=== PATIENT | female | born 1960 | race Caucasian/White ===

== ENCOUNTER 2016-04-30 11:19 | Emergency (ER) | payer BC ==
[2016-04-30 12:22] VITALS: BP 137/85
--- NOTE | 2016-04-30 13:50 | UC ---
Respiratory Complaint HPI - HPI Summary HPI Summary: 55 year old female presents with a nonproductive cough x 9 days. Reports SOB with exertion, nighttime cough, and wheezing. Denies fever like symptoms. - History of Current Complaint Chief Complaint: UCRespiratory Stated Complaint: COUGH Time Seen by Provider: 04/30/16 13:32 Hx Obtained From: Patient Hx Last Menstrual Period: 10 years ago. ?: No Onset/Duration: Gradual Onset Timing: Intermittent Episodes Character: Cough: Nonproductive Aggravating Factors: Exertion, Deep Breaths Associated Signs And Symptoms: Positive: Dyspnea, Pleuritic Chest Pain, Wheezing , Hoarseness. Negative: Fever, Chills, Hemoptysis, Nasal Congestion, Sinus Discomfort - Risk Factors Pulmonary Embolism Risk Factors: Negative Cardiac Risk Factors: Negative Pseudomonas Risk Factors: Negative Tuberculosis Risk Factors: Negative - Allergies/Home Medications Allergies/Adverse Reactions: Allergies Allergy/AdvReac Type Severity Reaction Status Date / Time No Known Allergies Allergy Verified 04/30/16 12:21 PMH/Surg Hx/FS Hx/Imm Hx Previously Healthy: Yes Endocrine History Of: Denies: Diabetes, Thyroid Disease Cardiovascular History Of: Reports: Hypertension Denies: Cardiac Disorders Respiratory History Of: Reports: Asthma - seasonal-winter Denies: COPD GI/ History Of: Denies: Gastroesophageal Reflux, Ulcer, Gastrointestinal Bleed, Gall Bladder Disease, Kidney Stones, Diverticulitis, Renal Disease, Urosepsis Neurological History Of: Denies: TIA, CVA, Dementia, Seizures, Migraine Psychological History Of: Denies: Anxiety, Depression, Bipolar Disorder, Schizophrenia, Post Traumatic Stress Disorder Cancer History Of: Denies: Lung Cancer, Colorectal Cancer, Breast Cancer, Prostate Cancer, Cervical Cancer - Surgical History Surgical History: Yes Surgery Procedure, Year, and Place: [facility] - Family History Known Family History: Positive: None, Respiratory Disease - Mother/brother - COPD Sister: Lung Polyps - Social History Occupation: Employed Full-time - [employer] Lives: With Family Alcohol Use: Rare Substance Use Type: None Smoking Status (MU): Never Smoked Tobacco Have You Smoked in the Last Year: No - Immunization History Most Recent Influenza Vaccination: dec 2015 Review of Systems Constitutional: Negative Skin: Negative Eyes: Negative ENT: Negative Respiratory: Shortness Of Breath - With exertion Cardiovascular: Negative Gastrointestinal: Negative Genitourinary: Negative Motor: Negative Neurovascular: Negative Musculoskeletal: Negative Neurological: Negative Psychological: Negative All Other Systems Reviewed And Are Negative: Yes Physical Exam Triage Information Reviewed: Yes Appearance: Well-Appearing Vital Signs: Initial Vital Signs Temp 98 F 04/30/16 12:18 Pulse 90 04/30/16 12:18 Resp 20 04/30/16 12:18 BP 137/85 04/30/16 12:18 Pulse Ox 97 04/30/16 12:18 Vital Signs Reviewed: Yes Eye Exam: Normal ENT Exam: Normal ENT: Positive: Normal ENT inspection, Hearing grossly normal, Pharynx normal, TMs normal Dental Exam: Normal Neck exam: Normal Neck: Positive: Supple, Nontender, No Lymphadenopathy Respiratory: Positive: Chest non-tender, Lungs clear, No respiratory distress, Decreased breath sounds - Right posterior lobe, Wheezing - slight expiratory wheeze Cardiovascular: Positive: RRR, No Murmur, Pulses Normal Abdomen Description: Positive: Nontender, No Organomegaly, Soft Bowel Sounds: Positive: Present Musculoskeletal Exam: Normal Musculoskeletal: Positive: Strength Intact, ROM Intact Neurological: Positive: Alert Psychological Exam: Normal Skin Exam: Normal UC Diagnostic Evaluation - Laboratory O2 Sat by Pulse Oximetry: 97 Respiratory Course/Dx - Differential Dx/Diagnosis Provider Diagnoses: Acute bronchitis. bronchospasm Discharge - Discharge Plan Condition: Stable Disposition: HOME Prescriptions: Albuterol HFA INHALER* [Ventolin HFA Inhaler*] 1 - 2 puff INH Q6H PRN #1 mdi PRN Reason: wheeze guaiFENesin/CODIEN 100MG-10MG* [Robitussin AC 100Mg-10Mg*] 5 - 10 ml PO BEDTIME PRN #240 udc MDD 10 ml PRN Reason: Cough predniSONE TAB* [Deltasone TAB*] 50 mg PO DAILY #5 tab Patient Education Materials: Acute Bronchitis (ED) Referrals: Maryellen Quick MD [Primary Care Provider] - If Needed Additional Instructions: Call or return if you develop increasing fever, shortness of breath, chest pain , bloody sputum, or otherwise worsen. If you have not improved at all after several days, contact your primary care physician or return here.
== END 2016-04-30 14:04 | disposition home or self-care (01) ==
LOC: UCEAST 11:19
DX: J20.9 Acute bronchitis, unspecified (principal); Z90.49 Acquired absence of other specified parts of digestive tract
CPT/HCPCS: 99212; G0463

== ENCOUNTER 2016-05-08 08:46 | Emergency (ER) | payer BC ==
[2016-05-08 09:31] VITALS: BP 148/91
--- NOTE | 2016-05-08 09:41 | UC ---
Respiratory Complaint HPI - HPI Summary HPI Summary: TREATED FOR BRONCHITIS LAST WEEK WITH PREDNISONE, ALBUTEROL AND COUGH SYRUP. STATES SHE WAS FEELING BETTER BUT 2 DAYS AGO SX RETURNED. COUGH, HEAD CONGESTION AND FATIGUE. NO FEVER, N/V/D. - History of Current Complaint Chief Complaint: UCRespiratory Stated Complaint: CHEST CONGESTION Time Seen by Provider: 05/08/16 09:14 Hx Obtained From: Patient Hx Last Menstrual Period: 10 years ago. Onset/Duration: Gradual Onset, Lasting Days, Still Present Timing: Constant Severity Initially: Moderate Severity Currently: Moderate Pain Intensity: 0 Pain Scale Used: 0-10 Numeric Character: Cough: Nonproductive Aggravating Factors: Nothing Alleviating Factors: Nothing Associated Signs And Symptoms: Positive: URI, Nasal Congestion. Negative: Dyspnea, Fever, Chills, Pleuritic Chest Pain, Wheezing, Hemoptysis, Dizziness, Calf Pain, Calf Swelling, Hoarseness, Sinus Discomfort - Allergies/Home Medications Allergies/Adverse Reactions: Allergies Allergy/AdvReac Type Severity Reaction Status Date / Time No Known Allergies Allergy Verified 05/08/16 09:32 Home Medications: Home Medications Magnesium Oxide [Magnesium] 500 mg PO DAILY 05/08/16 [History Confirmed 05/08/16 ] Multiple Vitamin [Multi Vitamin] 1 tab PO DAILY 05/08/16 [History Confirmed 10/15] PMH/Surg Hx/FS Hx/Imm Hx Endocrine History Of: Denies: Diabetes, Thyroid Disease Cardiovascular History Of: Reports: Hypertension Denies: Cardiac Disorders Respiratory History Of: Reports: Asthma - seasonal-winter Denies: COPD GI/ History Of: Denies: Gastroesophageal Reflux, Ulcer, Gastrointestinal Bleed, Gall Bladder Disease, Kidney Stones, Diverticulitis, Renal Disease, Urosepsis Neurological History Of: Denies: TIA, CVA, Dementia, Seizures, Migraine Psychological History Of: Denies: Anxiety, Depression, Bipolar Disorder, Schizophrenia, Post Traumatic Stress Disorder Cancer History Of: Denies: Lung Cancer, Colorectal Cancer, Breast Cancer, Prostate Cancer, Cervical Cancer - Surgical History Surgical History: Yes Surgery Procedure, Year, and Place: 2010 - Family History Known Family History: Positive: Respiratory Disease - Mother/brother - COPD Sister: Lung Polyps - Social History Alcohol Use: Rare Substance Use Type: None Smoking Status (MU): Never Smoked Tobacco Have You Smoked in the Last Year: No Household Exposure Type: Cigarettes - Immunization History Most Recent Influenza Vaccination: dec 2015 Review of Systems Constitutional: Fatigue ENT: Sore Throat, Nasal Discharge Respiratory: Cough Cardiovascular: Negative Gastrointestinal: Negative All Other Systems Reviewed And Are Negative: Yes Physical Exam Triage Information Reviewed: Yes Appearance: Well-Appearing, No Pain Distress, Well-Nourished Vital Signs: Initial Vital Signs Temp 98.1 F 05/08/16 09:23 Pulse 96 05/08/16 09:23 Resp 16 05/08/16 09:23 BP 148/91 05/08/16 09:23 Pulse Ox 98 05/08/16 09:23 Vital Signs Reviewed: Yes Eyes: Positive: Conjunctiva Clear ENT: Positive: Hearing grossly normal, Pharynx normal, TMs normal Neck: Positive: Supple, Nontender, No Lymphadenopathy Respiratory Exam: Normal Cardiovascular Exam: Normal Abdomen Description: Positive: Soft Musculoskeletal: Positive: No Edema Neurological: Positive: Alert Psychological: Positive: Age Appropriate Behavior Skin: Negative: rashes UC Diagnostic Evaluation - Laboratory O2 Sat by Pulse Oximetry: 98 Respiratory Course/Dx - Differential Dx/Diagnosis Provider Diagnoses: ACUTE URI Discharge - Discharge Plan Condition: Stable Disposition: HOME Prescriptions: Azithromycin [Azithromycin 500 MG TAB] 500 mg PO DAILY #5 tab Benzonatate CAP* [Tessalon CAP*] 1 - 2 cap PO TID PRN #30 cap PRN Reason: Cough Patient Education Materials: Upper Respiratory Infection (ED) Referrals: Maryellen Quick MD [Primary Care Provider] - If Needed Additional Instructions: REST, HYDRATE, OTC MEDS NEEDED. YOU LIKELY HAVE A VIRAL RESPIRATORY INFECTION. ANTIBIOTICS ARE NOT INDICATED AT PRESENT. IF YOUR SYMPTOMS DO NOT IMPROVE EXPECTED OVER THE NEXT WEEK OR SO YOU MAY FILL RX FOR ABX.
== END 2016-05-08 10:09 | disposition home or self-care (01) ==
LOC: UCEAST 08:46
DX: J06.9 Acute upper respiratory infection, unspecified (principal); Z77.22 Contact with and (suspected) exposure to environmental tobacco smoke (acute) (chronic)
CPT/HCPCS: 99212; G0463

== ENCOUNTER 2017-11-12 12:45 | Inpatient (IN) | payer BC ==
[~2017-11-12 12:45] MED LIST: Buffered Lidocaine 0.9% SYRIN* 5 ML/SYR SYRINGE INTRADERM ONE; Dexamethasone TAB* 4 MG PO ONE; DiMENhydriNATE IV* 50 MG/ML VIAL IV PUSH PRN; Famotidine IV* 10 MG/ML 2 ML (20 mg) IV ONE; Morphine INJ* 2 MG/ML 1 ML SYRINGE (TWO MG - NEW SYRINGE VERSION) IV PRN; Naloxone* 0.4 MG/ML 1 ML VIAL IV PRN; Ondansetron TAB* 4 MG PO ONE; PROCHLORPERAZINE INJ 5 MG/ML 2 ML VIAL IV PRN; Scopolamine 1.5 mg* PATCH TRANSDERM ONE; fentaNYL* 50 MCG/ML 2 ML VIAL (100 MCG VIAL) IV PRN
--- OUTSIDE RECORDS SUMMARY | 2017-11-12 13:17 | XMS REPORT ---
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 Active Onset: 08/23/2011 Stress reaction causing mixed Maryellen Malin M.D. Active disturbance of emotion and conduct Onset: 11/04/2012 Overweight Maryellen Malin M.D. Active Onset: 11/04/2012 History of polyp of colon Maryellen Malin M.D. Active Onset: 11/04/2012 Family history of malignant neoplasm Maryellen Malin M.D. Active of breast Onset: 07/28/2015 Essential hypertension Maryellen Malin M.D. Active Family History Date Family Member(s) Problem(s) Comments General Breast CA - sister. no fam hx lung, colon CA. DM - mgm. Father father early 60's. medical history unknown. Adopted by step father father 74. stopped smoking. arrythmia. Mother 65 emphysema - smoker. First Son adopted from [facility]. well controlled seizures. College Freshman [employer] in [place]. Second Son adopted from [facility]. CP. High functioning. tendon lengthening surgery x 2. Plays all sports. some academic delay. First Brother 57 dt emphysema. long time smoker. on hospice. First Sister Breast CA - age 49. treated with surgery, radiation, tamoxifen. Second Sister healthy. [place]. Maternal Grandmother due to Natural Causes () - age 68. DM. Social History Type Date Description Comments Education Highest level of education completed is a master's degree [employer]. [employer], [employer] and [employer]. Honorable Discharge 1986. Living Situation Lives with spouse-female. 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 Cigarette Use Never Smoked Cigarettes grew up with second hand smoke. ETOH Use Rare no drinks in 2 years - too many calories. Smoking Patient has never smoked Daily Caffeine Daily Caffeine 4 cups coffee daily, creamer sweetner- switched to Stevia, now 2 cups daily. (2010) Exercise Type/Frequency Exercises rarely 2-3x /week. Current Goal is to run a 5K. Seat Belt/Car Seat Always uses a seat belt Allergies, Adverse Reactions, Alerts Date Description Reaction Status Severity Comments 11/10/2010 NKDA active Medications Medication Date Status Form Strength Qnty SIG Indications Ordering Provider Escitalopram 04/13/ Active Tablets 10mg 60tabs take 2 F34.1 Maryellen Stubbs Oxalate 2015 tablets Abdelrahman, by mouth M.DDeepali every day Epipen 2-Jorge 04/20/ Active Solution 0.3mg/0.3M 1units use as I10 Maryellen Stubbs 2015 Auto-Injec L directed denver Malin M.D. Benazepril 11/07/ Active Tablets 20-12.5mg 30tabs Take One I10 Maryellen Stubbs HCL/Hydrochloro 2009 Tablet By Abdelrahman thiazide Mouth M.DDeepali Every Morning Aleve / Active Tablets 220mg 30tabs 1 Tab qd Maryellen Stubbs 0000 prn Juma Malin Multivitamin & 00/00/ Active Unknown Mineral 0000 Cpap / Active as Unknown 0000 directed Metronidazole 07/27/ Hx Cream 0.75% 45gm apply L71.8 Maryellen Stubbs 2016 - daily Abdelrahman, M.D. 2017 Escitalopram 03/16/ Hx Tablets 5mg 30tabs take 1 F34.1 Dinaa Oxalate 2014 - tablet by Valarie, 04/13/ mouth at Afnp-C 2016 bedtime Vosol HC 08/28/ Hx Solution 2-1% 10ml 4 gtts in 380.22 Angeilca 2012 - AD tid x CM Molina 11/04/ 7days 2012 Omeprazole 07/01/ Hx Capsules 20mg 30caps 1 po qd 530.81 Maryellen Stubbs 2011 - DR Malin, M.D. 2012 Ranitidine HCL 06/21/ Hx Tablets 300mg 30tabs 1 po at hs 530.81 Maryellen Stubbs 2011 - Abdelrahman M.D. 2012 Terbinafine HCL 12/07/ Hx Tablets 250mg 56tabs 2 po daily 110.4 Maryellen Stubbs 2009 - first week Abdelrahman, M.D. 2010 month x 4 months. Advair Diskus 11/07/ Hx Aerosol 100-50mcg/ 1units 1 puff bid Maryellen Stubbs 2009 - Dose Abdelrahman, M.D. 2012 Fexofenadine 11/07/ Hx Tablets 60mg 90tabs 1 po qd Maryellen Stubbs HCL 2009 - Abdelrahman, .DDeepali 2012 Fish Oil / Hx Capsules 1 po qd Unknown 0000 - 2016 Immunizations CPT Code Status Date Vaccine Lot # [id number] Given 12/07/2009 Tetanus And Diptheria Adult Preservative Free [id number] >7Yrs Vital Signs Date Vital Result Comment 10/16/2017 BP Systolic 110 mmHg BP Diastolic 80 mmHg Heart Rate 66 /min Body Temperature 98.6 F Respiratory Rate 18 /min Height 64 inches 5'4" Weight 219.00 lb BMI (Body Mass Index) 37.6 kg/m2 07/02/2017 BP Systolic 110 mmHg BP Diastolic 72 mmHg Heart Rate 68 /min Body Temperature 97.1 F Height 64 inches 5'4" Weight 231.00 lb BMI (Body Mass Index) 39.6 kg/m2 03/13/2017 BP Systolic 116 mmHg BP Diastolic 76 mmHg Heart Rate 72 /min Body Temperature 97.5 F Respiratory Rate 16 /min Weight 244.50 lb 12/25/2016 BP Systolic 118 mmHg BP Diastolic 80 mmHg Heart Rate 68 /min Body Temperature 98.2 F Respiratory Rate 18 /min Weight 240.00 lb 11/15/2016 BP Systolic 120 mmHg BP Diastolic 80 mmHg Heart Rate 80 /min Body Temperature 98.2 F Respiratory Rate 18 /min Weight 237.00 lb 08/11/2015 BP Systolic 104 mmHg BP Diastolic 60 mmHg Heart Rate 78 /min Body Temperature 98.1 F Respiratory Rate 16 /min Height 63.5 inches 5'3.50" mesured 07/28/15 Weight 219.50 lb BMI (Body Mass Index) 38.3 kg/m2 07/28/2015 BP Systolic 116 mmHg BP Diastolic 78 mmHg Heart Rate 60 /min Body Temperature 98.4 F Respiratory Rate 16 /min Height 63.5 inches 5'3.50" mesured 07/28/15 Weight 219.50 lb BMI (Body Mass Index) 38.3 kg/m2 07/13/2015 BP Systolic 118 mmHg BP Diastolic 80 mmHg Heart Rate 74 /min Body Temperature 98.2 F Height 63 inches 5'3" Weight 220.00 lb BMI (Body Mass Index) 39.0 kg/m2 04/13/2015 BP Systolic 120 mmHg BP Diastolic 70 mmHg Heart Rate 73 /min Body Temperature 97.3 F Respiratory Rate 16 /min Height 63 inches 5'3" Weight 212.12 lb BMI (Body Mass Index) 37.6 kg/m2 03/16/2015 BP Systolic 122 mmHg BP Diastolic 70 mmHg Heart Rate 84 /min Body Temperature 97.5 F Respiratory Rate 18 /min Height 63 inches 5'3" Weight 211.12 lb BMI (Body Mass Index) 37.4 kg/m2 04/20/2014 BP Systolic 110 mmHg BP Diastolic 80 mmHg Heart Rate 80 /min Body Temperature 98.5 F Respiratory Rate 18 /min Height 63 inches 5'3" Weight 178.00 lb BMI (Body Mass Index) 31.5 kg/m2 04/16/2013 BP Systolic 118 mmHg BP Diastolic 74 mmHg Heart Rate 66 /min Body Temperature 97.9 F Respiratory Rate 18 /min Height 63 inches 5'3" Weight 189.00 lb BMI (Body Mass Index) 33.5 kg/m2 01/23/2013 BP Systolic 108 mmHg BP Diastolic 80 mmHg Heart Rate 80 /min Body Temperature 98.1 F Respiratory Rate 16 /min Height 63.25 inches 5'3.25" Weight 206.00 lb BMI (Body Mass Index) 36.2 kg/m2 11/04/2012 BP Systolic 110 mmHg BP Diastolic 70 mmHg Heart Rate 68 /min Body Temperature 98.3 F Respiratory Rate 16 /min Height 63.25 inches 5'3.25" Weight 234.00 lb BMI (Body Mass Index) 41.1 kg/m2 08/28/2012 BP Systolic 128 mmHg BP Diastolic 80 mmHg Heart Rate 72 /min Body Temperature 97.8 F Respiratory Rate 20 /min Height 63.25 inches 5'3.25" Weight 230.12 lb BMI (Body Mass Index) 40.4 kg/m2 08/23/2011 BP Systolic 120 mmHg BP Diastolic 80 mmHg Heart Rate 68 /min Body Temperature 98.2 F Height 63.25 inches 5'3.25" Weight 237.00 lb BMI (Body Mass Index) 41.6 kg/m2 07/02/2011 BP Systolic 120 mmHg BP Diastolic 70 mmHg Heart Rate 76 /min Body Temperature 98.5 F Height 63.25 inches 5'3.25" Weight 225.00 lb BMI (Body Mass Index) 39.5 kg/m2 06/22/2011 BP Systolic 122 mmHg BP Diastolic 76 mmHg Heart Rate 68 /min Body Temperature 97.7 F Respiratory Rate 20 /min Height 63.25 inches 5'3.25" Weight 221.00 lb BMI (Body Mass Index) 38.8 kg/m2 12/21/2010 BP Systolic 130 mmHg BP Diastolic 84 mmHg Heart Rate 64 /min Body Temperature 98.3 F Height 63.25 inches 5'3.25" Weight 213.00 lb BMI (Body Mass Index) 37.4 kg/m2 11/10/2010 BP Systolic 112 mmHg BP Diastolic 70 mmHg Heart Rate 72 /min Body Temperature 97.2 F Respiratory Rate 16 /min Height 63 inches 5'3" Weight 211.00 lb BMI (Body Mass Index) 37.4 kg/m2 12/07/2009 BP Systolic 122 mmHg BP Diastolic 84 mmHg Heart Rate 88 /min Body Temperature 98.0 F Respiratory Rate 16 /min Height 63 inches 5'3" Weight 241.00 lb BMI (Body Mass Index) 42.7 kg/m2 11/07/2009 BP Systolic 130 mmHg BP Diastolic 90 mmHg Heart Rate 88 /min Body Temperature 98.9 F Height 63 inches 5'3" Weight 244.00 lb BMI (Body Mass Index) 43.2 kg/m2 Results Test Date Test Result H/L Range Note Ua - Micro (Fma) 10/16/2017 Appearance clear Color yellow Glucose, Urine (Fma/CMC/CTX) negative Bilirubin negative Ketones negative SP Grav 1.010 Blood negative PH 5.5 Protein negative Urobil 0.2 Nitrite negative Leukocytes (Fma/CMC/Centrex) negative Hyaline - /Lpf Granular - /Lpf WBC (Fma,Centrex) - RBC - Mucus - /Lpf Epith - /Lpf Bacteria - /Hpf Amorphous - /Lpf Crystals, Fluid (Fma/CMC/CTX) - Z#Comments - Laboratory test finding 10/14/2017 Surgical Interface SEE RESULT BELOW 1 Order Laboratory test finding 10/14/2017 Clotest SEE RESULT BELOW 2 Comp Metabolic Panel 07/04/2017 Sodium 140 mmol/L 139-145 Potassium 4.5 mmol/L 3.5-5.0 Chloride 105 mmol/L 101-111 Co2 Carbon Dioxide 30 mmol/L 22-32 Anion Gap 5 mmol/L 2-11 Glucose 95 mg/dL 70-100 Blood Urea Nitrogen 19 mg/dL 6-24 Creatinine 0.90 mg/dL 0.51-0.95 BUN/Creatinine Ratio 21.1 High 8-20 Calcium 9.6 mg/dL 8.6-10.3 Total Protein 6.6 g/dL 6.4-8.9 Albumin 4.2 g/dL 3.2-5.2 Globulin 2.4 g/dL 2-4 Albumin/Globulin Ratio 1.8 1-3 Total Bilirubin 0.40 mg/dL 0.2-1.0 Alkaline Phosphatase 45 U/L 34-104 Alt 48 U/L 7-52 Ast 39 U/L 13-39 Egfr Non- 64.8 >60 Egfr 83.3 >60 3 Lipid Profile (Trig/Chol/HDL) 07/04/2017 Triglycerides 90 mg/dL 4 Cholesterol 181 mg/dL 5 HDL Cholesterol 57.9 mg/dL 6 LDL Cholesterol 105 mg/dL 7 Laboratory test finding 07/04/2017 TSH (Thyroid Stim Horm) 3.10 mcIU/mL 0.34-5.60 CBC Auto Diff 04/30/2017 White Blood Count 6.3 10^3/uL 3.5-10.8 Red Blood Count 4.95 10^6/uL 4.0-5.4 Hemoglobin 14.4 g/dL 12.0-16.0 Hematocrit 43 % 35-47 Mean Corpuscular Volume 87 fL 80-97 Mean Corpuscular Hemoglobin 29 pg 27-31 Mean Corpuscular HGB Conc 33 g/dL 31-36 Red Cell Distribution Width 13 % 10.5-15 Platelet Count 249 10^3/uL 150-450 Mean Platelet Volume 8 um3 7.4-10.4 Abs Neutrophils 3.8 10^3/uL 1.5-7.7 Abs Lymphocytes 1.8 10^3/uL 1.0-4.8 Abs Monocytes 0.4 10^3/uL 0-0.8 Abs Eosinophils 0.2 10^3/uL 0-0.6 Abs Basophils 0.1 10^3/uL 0-0.2 Abs Nucleated RBC 0 10^3/uL Granulocyte % 60.0 % 38-83 Lymphocyte % 29.1 % 25-47 Monocyte % 7.1 % 1-9 Eosinophil % 3.0 % 0-6 Basophil % 0.8 % 0-2 Nucleated Red Blood Cells % 0 Lipid Profile (Trig/Chol/HDL) 12/11/2016 Triglycerides 117 mg/dL 8 Cholesterol 249 mg/dL 9 HDL Cholesterol 61.7 mg/dL 10 LDL Cholesterol 164 mg/dL 11 Laboratory test finding 12/11/2016 TSH (Thyroid Stim Horm) 4.22 mcIU/mL 0.34-5.60 T3 Free 2.40 pg/mL Low 2.5-3.9 Free T4 (Free Thyroxine) 0.68 ng/dL 0.61-1.12 Vitamin D Total 25(Oh) 38.3 ng/mL 30-50 Comp Metabolic Panel 12/11/2016 Sodium 137 mmol/L 133-145 Potassium 4.5 mmol/L 3.5-5.0 Chloride 103 mmol/L 101-111 Co2 Carbon Dioxide 28 mmol/L 22-32 Anion Gap 6 mmol/L 2-11 Glucose 101 mg/dL High 70-100 Blood Urea Nitrogen 17 mg/dL 6-24 Creatinine 0.84 mg/dL 0.51-0.95 BUN/Creatinine Ratio 20.2 High 8-20 Calcium 9.6 mg/dL 8.6-10.3 Total Protein 7.0 g/dL 6.4-8.9 Albumin 4.3 g/dL 3.2-5.2 Globulin 2.7 g/dL 2-4 Albumin/Globulin Ratio 1.6 1-3 Total Bilirubin 0.60 mg/dL 0.2-1.0 Alkaline Phosphatase 47 U/L 34-104 Alt 29 U/L 7-52 Ast 22 U/L 13-39 Egfr Non- 70.1 >60 Egfr 90.2 >60 12 CBC No Diff 12/11/2016 White Blood Count 7.1 10^3/uL 3.5-10.8 Red Blood Count 5.06 10^6/uL 4.0-5.4 Hemoglobin 14.6 g/dL 12.0-16.0 Hematocrit 44 % 35-47 Mean Corpuscular Volume 87 fL 80-97 Mean Corpuscular Hemoglobin 29 pg 27-31 Mean Corpuscular HGB Conc 33 g/dL 31-36 Red Cell Distribution Width 14 % 10.5-15 Platelet Count 239 10^3/uL 150-450 Mean Platelet Volume 8 um3 7.4-10.4 Laboratory test finding 01/02/2016 Surgical Interface Order SEE RESULT BELOW 13 Xray 09/19/2015 Mammography Screening, 1120 Bilateral; 2-View Each Breast Laboratory test finding 08/11/2015 PDF [id number] SEE IMAGE Pap W/RFX High Risk HPV 08/11/2015 Diagn See Comment: 14 Adeq See Comment: 15 [email or web address] See Comment: 16 Perfor See Comment: 17 Comm . Note See Comment: 18 Iglbp See Comment: 19 Reflex See Comment: 20 Ua - Non Micro (Fma) 08/11/2015 Appearance CLEAR Color YELLOW Glucose, Urine (Fma/CMC/CTX) NEG Bilirubin NEG Ketones NEG SP Grav 1.015 Blood NEG PH 7.5 Protein NEG Urobil 0.2 Nitrite NEG Leukocytes (Fma/CMC/Centrex) NEG Comp Metabolic Panel 08/01/2015 Sodium 137 mmol/L 133-145 21 Potassium 4.5 mmol/L 3.5-5.0 21 Chloride 104 mmol/L 101-111 21 Co2 Carbon Dioxide 27 mmol/L 22-32 21 Anion Gap 6 mmol/L 2-11 21 Glucose 100 mg/dL 70-100 21 Blood Urea Nitrogen 24 mg/dL 6-24 21 Creatinine 0.83 mg/dL 0.51-0.95 21 BUN/Creatinine Ratio 28.9 High 8-20 21 Calcium 9.3 mg/dL 8.6-10.3 21 Total Protein 6.9 g/dL 6.4-8.9 21 Albumin 4.2 g/dL 3.2-5.2 21 Globulin 2.7 g/dL 2-4 21 Albumin/Globulin Ratio 1.6 1-3 21 Total Bilirubin 0.30 mg/dL 0.2-1.0 21 Alkaline Phosphatase 46 U/L 34-104 21 Alt 27 U/L 7-52 21 Ast 23 U/L 13-39 21 Egfr Non- 71.6 >60 21 Egfr 92.1 >60 21, 22 Laboratory test finding 08/01/2015 TSH (Thyroid Stim 3.98 ?IU/mL 0.34- 5.60 21, 23 Horm) Free T4 (Free Thyroxine) 0.75 ng/dL 0.61-1.12 21, 24 Vitamin D Total 25(Oh) 32.2 ng/mL 30-50 21, 25 Laboratory test 06/03/2015 Throat Beta Strep SEE RESULT BELOW 26 finding Culture Laboratory test 06/03/2015 Rapid Strep Negative Negative 27 finding Molecular CBC Electronic-[facility] 04/23/2014 White Blood Count 4.8 10^3/uL 4.8-10.8 28 Compani Red Blood Count 5.03 10^6/uL 4.0-5.4 28 Hemoglobin 14.7 g/dL 12.0-16.0 28 Hematocrit 45 % 35-47 28 Mean Corpuscular Volume 89 fL 80-97 28 Mean Corpuscular Hemoglobin 29 pg 27-31 28 Mean Corpuscular HGB Conc 33 g/dL 31-36 28 Red Cell Distribution Width 13 % 10.5-15 28 Platelet Count 198 10^3/uL 150-450 28 Mean Platelet Volume 9 um3 7.4-10.4 28 Abs Neutrophils 2.4 10^3/uL 1.5-7.7 28 Abs Lymphocytes 1.9 10^3/uL 1.0-4.8 28 Abs Monocytes 0.3 10^3/uL 0-0.8 28 Abs Eosinophils 0.1 10^3/uL 0-0.6 28 Abs Basophils 0 10^3/uL 0-0.2 28 Abs Nucleated RBC 0 10^3/uL 28 Granulocyte % 49.9 % 38-83 28 Lymphocyte % 40.6 % 25-47 28 Monocyte % 6.2 % 1-9 28 Eosinophil % 2.7 % 0-6 28 Basophil % 0.6 % 0-2 28 Nucleated Red Blood Cells % 0 28 Comp Metabolic-[facility] Compani 04/23/2014 Sodium 137 mmol/L 133-145 28 Potassium 4.2 mmol/L 3.5-5.0 28 Chloride 104 mmol/L 101-111 28 Co2 Carbon Dioxide 29 mmol/L 22-32 28 Anion Gap 4 mmol/L 2-11 28 Glucose 90 mg/dL 70-100 28 Blood Urea Nitrogen 26 mg/dL High 6-24 28 Creatinine 0.81 mg/dL 0.51-0.95 28 BUN/Creatinine Ratio 32.1 High 8-20 28 Calcium 9.7 mg/dL 8.6-10.3 28 Total Protein 7.0 g/dL 6.4-8.9 28 Albumin 4.2 g/dL 3.2-5.2 28 Globulin 2.8 g/dL 2-4 28 Albumin/Globulin Ratio 1.5 1-3 28 Total Bilirubin 0.40 mg/dL 0.2-1.0 28 Alkaline Phosphatase 43 U/L 34-104 28 Alt 18 U/L 7-52 28 Ast 20 U/L 13-39 28 Egfr Non- 74.0 >60 28 Egfr 95.1 >60 28, 29 Lipid Panel-[facility] 04/23/2014 Triglycerides 78 mg/dL 28, 30 Cholesterol 240 mg/dL 28, 31 HDL Cholesterol 62.5 mg/dL 28, 32 LDL Cholesterol 162 mg/dL 28, 33 Vitamin D, 25-Hydroxy (CTX,[facility] [place] 04/23/2014 25-Hydroxy Vitamin D2 <4.0 ng/mL 28 25-Hydroxy Vitamin D3 42 ng/mL 28 25-Hydroxy Vitamin D Total 42 ng/mL 28, 34 Laboratory test 04/23/2014 TSH (Thyroid 3.57 IU/mL 0.34-5.60 28, 35 finding Stimulating Horm) Ua - Non Micro (Fma) 04/20/2014 Appearance yellow Color clear Glucose, Urine (Fma/CMC/CTX) neg Bilirubin neg Ketones neg SP Grav 1.010 Blood neg PH 7.0 Protein neg Urobil 0.2 Nitrite neg Leukocytes (Fma/CMC/Centrex) neg Lipid Profile (Trig/Chol/HDL) 04/29/2013 Triglycerides 116 mg/dL 40-200 Cholesterol 239 mg/dL High Less than 200 HDL Cholesterol 56 mg/dL 40-60 36 Cholesterol/HDL Ratio 4.3 Average 1-4.44 LDL Cholesterol 159.8 High Less Than 100 37 Ua - Non Micro (Fma) 04/16/2013 Appearance YELLOW Color CLEAR Glucose NEG Bilirubin NEG Ketones NEG SP Grav 1.020 Blood NEG PH 7.0 Protein NEG Urobil 0.2 Nitrite NEG Leukocytes (Fma/CMC/Centrex) NEG Ua - Non Micro (Fma) 11/04/2012 Appearance CLEAR Color YELLOW Glucose NEG Bilirubin NEG Ketones NEG SP Grav 1.010 Blood NEG PH 7.0 Protein NEG Urobil 0.2 Nitrite NEG Leukocytes (Fma/CMC/Centrex) NEG Laboratory test 11/04/2012 Thin Prep W/HPV(Lsil/JAMAL/Asc) SEE NOTE 38 finding Basic Metabolic 09/05/2012 Sodium 138 mmol/L 133-145 Panel Potassium 4.4 mmol/L 3.5-5.0 Chloride 104 mmol/L 101-111 Co2 Carbon Dioxide 26.0 mmol/L 22-32 Anion Gap 8.0 mmol/L 2-11 Glucose 93 mg/dL 70-100 Blood Urea Nitrogen 21 mg/dL 6-24 Creatinine 0.80 mg/dL 0.50-1.40 BUN/Creatinine Ratio 26.3 High 8-20 Calcium 9.7 mg/dL 8.1-9.9 Egfr Non- 75.3 >60 Egfr 96.9 >60 39 Laboratory test 09/05/2012 TSH (Thyroid Stimulating 3.70 miu/mL 0.34- 5.60 40 finding Horm) Lipid Profile 09/05/2012 Triglycerides 111 mg/dL 40-200 (Trig/Chol/HDL) Cholesterol 217 mg/dL High Less than 200 HDL Cholesterol 57 mg/dL 40-60 41 Cholesterol/HDL Ratio 3.8 Average 1-4.44 LDL Cholesterol 137.8 High Less Than 100 42 Surgical Pathology 01/08/2011 Surgical Pathology <SEE 43 NOTE> Laboratory test 12/21/2010 Thin Prep SEE NOTE 44 finding W/HPV(Lsil/JAMAL/As c) CBC Electronic 12/05/2010 WBC 6.3 3.6-9.6 (Fma) RBC 5.15 3.90-5.70 Hemoglobin (Fma/CMC/CTX) 14.7 g/dL 12.1 - 17.2 Hematocrit (Fma/CMC/CTX) 45.7 % 36.1 - 50.3 Platelets 262 10^3/ul 150-400 Lymph% 26.8 20.5-51.1 Mixed% 8.0 Neutrophils % 65.2 Mean Corpuscular Vol 89 82.2-97.4 Mean Corpuscular Hemoglobin 28.5 27.6-33.3 Mean Corpuscular Hemo Concen 32.2 32.0-36.0 RDW 11.8 11.6-13.7 Mean Platelet Volume 8.2 6.5-11.0 Ua - Non Micro (Fma) 12/05/2010 Appearance clear Color yellow Glucose, Urine (Fma/CMC/CTX) neg Bilirubin neg Ketones neg SP Grav 1.015 Blood neg PH 5.5 Protein neg Urobil 0.2 Nitrite neg Leukocytes (Fma/CMC/Centrex) neg Laboratory test finding 12/05/2010 Vitamin D, 25 Oh 46.9 ng/mL 32.0- 100.0 45 Laboratory test finding 12/05/2010 TSH 4.53 mIU/L 0.50-6.00 Lipid Profile 12/05/2010 Cholesterol 212 mg/dL High 120-200 HDL 56 mg/dL 30-85 Triglycerides 74 mg/dL 30-200 HDL Risk Factor 3.8 CALC 0.0-4.0 LDL (Calculated) 141 CALC High 0-129 VLDL (Calculated) 15 mg/dL 0-50 Laboratory test finding 12/05/2010 Free T3 2.61 pg/mL 2.00-4.90 Comprehensive Metabolic Prof 12/05/2010 Albumin 4.7 g/dL 3.8-5.5 Alk. Phos. 48 U/L 30-110 Alt (SGPT) 17 U/L 7-35 Ast (Sgot) 19 U/L 5-34 BUN 24 mg/dL 6-26 Calcium 10.1 mg/dL 8.6-10.2 Chloride 101 mEq/L 94-112 Creatinine 0.9 mg/dL 0.6-1.4 Carbon Dioxide 26 mEq/L 21-32 Glucose 99 mg/dL 70-105 Sodium 144 mEq/L 134-149 Total Bilirubin 0.4 mg/dL 0.2-1.3 Total Protein 7.2 g/dL 6.3-8.1 Potassium 4.5 mEq/L 3.6-5.5 Globulin 2.5 g/dL 2.0-4.8 A/G Ratio 1.9 Calc 0.6-2.2 BUN/Creat Ratio 25.8 Calc 8.0-36.0 Laboratory test finding 12/08/2009 TSH 2.54 mIU/L 0.50-6.00 Comprehensive Metabolic Prof 12/08/2009 Albumin 4.7 g/dL 3.8-5.5 Alk. Phos. 41 U/L 30-110 Alt (SGPT) 49 U/L High 7-35 46 Ast (Sgot) 30 U/L 5-34 BUN 17 mg/dL 6-26 Calcium 9.7 mg/dL 8.6-10.2 Chloride 100 mEq/L 94-112 Creatinine 1.0 mg/dL 0.6-1.4 Carbon Dioxide 27 mEq/L 21-32 Glucose 102 mg/dL 70-105 Sodium 139 mEq/L 134-149 Total Bilirubin 0.5 mg/dL 0.2-1.3 Total Protein 7.1 g/dL 6.3-8.1 Potassium 4.2 mEq/L 3.6-5.5 Globulin 2.4 g/dL 2.0-4.8 A/G Ratio 2.0 Calc 0.6-2.2 BUN/Creat Ratio 17.1 Calc 8.0-36.0 Ua - Non Micro ([facility]) 12/07/2009 Appearance CLEAR Color YELLOW Glucose NEG Bilirubin NEG Ketones NEG SP Grav 1.020 Blood NEG PH 6.0 Protein NEG Urobil 0.2 E.U./dL Nitrite NEG Leukocytes (a/[facility] [place]) NEG 1 SEE RESULT BELOW Name: MALENA BOYD : [address]: Beverly Pepper DO Acct: [id number] Unit: [id number] AGE: 57 Location: ENDO Re10/14/17 SEX: F Status: DEP REF SPEC: [id number] CELENA: 10/14/17- SUBM DR: Beverly Pepper DO REQ: [id number] RECD: 10/14/17 STATUS: CARMELO GREEN DR: Antione Malin MD _ ORDERED: LEVEL 4/3 FINAL DIAGNOSIS 1. Duodenum, biopsy: -- Benign small intestinal mucosa with no significant pathologic abnormalities. -- No evidence of villous blunting or increased intraepithelial lymphocytes. 2. Stomach, antrum and body, biopsy: -- Body-type gastric mucosa with mild chronic gastritis. -- No evidence of Helicobacter organisms. 3. Gastroesophageal junction, biopsy: -- Squamous and columnar mucosa with chronic inflammation and intestinal metaplasia. -- Dysplasia is absent. CLINICAL HISTORY 57 year old female ? prebariatric screening POST-OPERATIVE DIAGNOSIS EGD: normal duodenum to fourth portion; mild antral gastritis ? biopsy and CLOtest; 3.5 cm hiatal hernia (37-33.5 cm); irregular Z-line at 37 cm ? biopsy; normal mid and proximal esophagus ? biopsy GROSS DESCRIPTION 1. The specimen is received in formalin labeled, Duodenum Biopsies, and consists of three soares irregular soft tissue fragments aggregating 0.7 x 0.3 x 0.1 cm which are submitted entirely in one cassette. 2. The specimen is received in formalin labeled, Antrum and Body Biopsies, and consists of two soares irregular soft tissue fragments measuring 0.3 x 0.2 x 0.2 cm and 0.4 x 0.2 x 0.1 cm CONTINUED ON NEXT PAGE DEPARTMENT OF PATHOLOGY, [address] [place] [address] Charan Vázquez M.D. Director [facility] # [id number] RUN DATE: 10/15/17 [facility] LAB LIVE PAGE 2 Patient: MALENA BOYD [id number] (Continued) GROSS DESCRIPTION (Continued) GROSS DESCRIPTION (Continued) which are submitted entirely in one cassette. 3. The specimen is received in formalin labeled, [place] Biopsies, and consists of a 0.9 x 0.5 x 0.1 cm aggregate of soares-white to pink irregular soft tissue fragments which is submitted entirely in one cassette. Signed by and Reported on: Nahed Mobley MD 10/15/17 1138 END OF REPORT DEPARTMENT OF PATHOLOGY, [address] [place] [address] Charan Vázquez M.D. Director [facility] # [id number] 2 SEE RESULT BELOW Name: MALENA BOYD : [address]: Beverly Pepper DO Acct: [id number] Unit: [id number] AGE: 57 Location: ENDO Re10/14/17 SEX: F Status: REG REF SPEC: [id number] CELENA: 10/14/17-[address] [facility] [address]: Beverly Pepper DO REQ: [id number] RECD: 10/14/17-1310 STATUS: JORJE GREEN DR: Antione Malin MD _ SOURCE: GAS ANTRUM SPDESC: ORDERED: Clotest Procedure Result Reported Site Clotest Final 10/15/17809 ML Clotest Negative * ML - Main Lab . END OF REPORT DEPARTMENT OF PATHOLOGY, [address] [place] [address] Charan Vázquez M.D. Director [facility] # [id number] 3 Because ethnic data is not always readily available, this report includes an eGFR for both -Americans and non- Americans. The National Kidney Disease Education Program (NKDEP) does not endorse the use of the MDRD equation for patients that are not between the ages of 18 and 70, are , have extremes of body size, muscle mass, or nutritional status, or are non- or non-. According to the National Kidney Foundation, irrespective of diagnosis, the stage of the disease is based on the level of kidney function: Stage Description GFR(mL/min/1.73 m(2)) 1 Kidney damage with normal or decreased GFR 90 2 Kidney damage with mild decrease in GFR 60-89 3 Moderate decrease in GFR 30-59 4 Severe decrease in GFR 15-29 5 Kidney failure <15 (or dialysis) 4 Desirable: <150 Borderline High: 150-199 High: 200-499 Very High: >500 5 Desirable: <200 Borderline High: 200-239 High: >239 6 Low: <40 Desirable: 40-60 High: >60 7 Desirable: <100 Near Optimal: 100-129 Borderline High: 130-159 High: 160-189 Very High: >189 8 Desirable <150 Borderline high 150-199 High 200-499 Very High >500 9 Desirable <200 Borderline high 200-239 High >239 10 Low <40 Desirable: 40-60 High: >60 11 Desirable: <100 mg/dL Near Optimal: 100-129 mg/dL Borderline High: 130-159 mg/dL High: 160-189 mg/dL Very High: >189 mg/dL 12 Because ethnic data is not always readily available, this report includes an eGFR for both -Americans and non- Americans. The National Kidney Disease Education Program (NKDEP) does not endorse the use of the MDRD equation for patients that are not between the ages of 18 and 70, are , have extremes of body size, muscle mass, or nutritional status, or are non- or non-. According to the National Kidney Foundation, irrespective of diagnosis, the stage of the disease is based on the level of kidney function: Stage Description GFR(mL/min/1.73 m(2)) 1 Kidney damage with normal or decreased GFR 90 2 Kidney damage with mild decrease in GFR 60-89 3 Moderate decrease in GFR 30-59 4 Severe decrease in GFR 15-29 5 Kidney failure <15 (or dialysis) 13 SEE RESULT BELOW Name: OMER MARTELMALENA M : [address]: Florentin Gore MD Acct: [id number] Unit: [id number] AGE: 55 Location: [facility] Re01/02/16 SEX: F Status: REG REF SPEC: [id number] CELENA: 01/02/16 [facility] DR: Florentin Gore MD REQ: [id number] RECD: 01/02/16 STATUS: CARMELO GREEN DR: Maryellen Malin MD _ ORDERED: LEVEL IV FINAL DIAGNOSIS Colon, cecum, biopsy: -- Hyperplastic polyp. CLINICAL HISTORY History of colon polyp 2011 POST-OPERATIVE DIAGNOSIS Colonoscopy into terminal ileum, prep good - small cecal polyp removed, otherwise normal. Conclusions/Plan: Small polyp removed GROSS DESCRIPTION The specimen is received in formalin labeled, Cecal Polyp, and consists of a 0.5 x 0.4 x 0.1 cm aggregate of soares-white irregular soft tissue fragments, which is submitted entirely in one cassette. Signed (signature on file) Nahed Mobley MD 07/15 1534 END OF REPORT * ML=Testing performed at Main Lab DEPARTMENT OF PATHOLOGY, [address] [place] [address] Charan Vázquez M.D. Director [facility] # [id number] 14 NEGATIVE FOR INTRAEPITHELIAL LESION AND MALIGNANCY. 15 Satisfactory for evaluation. Endocervical and/or squamous metaplastic cells (endocervical component) are present. 16 Z12.4 17 Justus Simental, Aerial Crop Duster (ASCP) 18 The Pap smear is a screening test designed to aid in the detection of premalignant and malignant conditions of the uterine cervix. It is not a diagnostic procedure and should not be used as the sole means of detecting cervical cancer. Both false-positive and false-negative reports do occur. 19 This liquid based ThinPrep(R) pap test was screened with the use of an image guided system. 20 The HPV DNA reflex criteria were not met with this specimen result therefore, no HPV testing was performed. 21 PT IS FASTING 22 Because ethnic data is not always readily available, this report includes an eGFR for both -Americans and non- Americans. The National Kidney Disease Education Program (NKDEP) does not endorse the use of the MDRD equation for patients that are not between the ages of 18 and 70, are , have extremes of body size, muscle mass, or nutritional status, or are non- or non-. According to the National Kidney Foundation, irrespective of diagnosis, the stage of the disease is based on the level of kidney function: Stage Description GFR(mL/min/1.73 m(2)) 1 Kidney damage with normal or decreased GFR 90 2 Kidney damage with mild decrease in GFR 60-89 3 Moderate decrease in GFR 30-59 4 Severe decrease in GFR 15-29 5 Kidney failure <15 (or dialysis) 23 PT IS FASTING 24 PT IS FASTING 25 PT IS FASTING 26 SEE RESULT BELOW Name: TELLO TAHMINAMALENA MOSER : [address]: Aiden Silva MD Acct: [id number] Unit: [id number] AGE: 54 Location: [facility] Re06/03/15 SEX: F Status: DEP ER SPEC: [id number] CELENA: 06/03/[address] [facility] [address]: Aiden Silva MD REQ: [id number] RECD: 06/03/15-1036 STATUS: COMP PETER DR: Maryellen Malin MD _ SOURCE: THROAT SPDESC: ORDERED: Throat Beta Str Procedure Result Reported Site Throat Beta Strep Culture Final 06/05/15- 1001 ML Negative For Group A Beta Streptococcus * ML - MAIN LAB ([facility]) . END OF REPORT * ML=Testing performed at Main Lab DEPARTMENT OF PATHOLOGY, [address] [place] [address] Charan Vázquez M.D. Director [facility] # [id number] 27 Sleeve Sewer: [id number] KATHLEEN THOMPSON The sports nutritionist and regulatory agencies both recommend that a throat culture for beta strep be performed if a Rapid Group A Strep assay yields a negative result. Therefore a culture will be automatically performed on all negative samples. 28 FASTING 29 Because ethnic data is not always readily available, this report includes an eGFR for both -Americans and non- Americans. The National Kidney Disease Education Program (NKDEP) does not endorse the use of the MDRD equation for patients that are not between the ages of 18 and 70, are , have extremes of body size, muscle mass, or nutritional status, or are non- or non-. According to the National Kidney Foundation, irrespective of diagnosis, the stage of the disease is based on the level of kidney function: Stage Description GFR(mL/min/1.73 m(2)) 1 Kidney damage with normal or decreased GFR 90 2 Kidney damage with mild decrease in GFR 60-89 3 Moderate decrease in GFR 30-59 4 Severe decrease in GFR 15-29 5 Kidney failure <15 (or dialysis) 30 Desirable <150 Borderline high 150-199 High 200-499 Very High >500 31 Desirable <200 Borderline high 200-239 High >239 32 Low <40 Desirable: 40-60 High: >60 33 Desirable <100 Near Optimal 100-129 Borderline high 130-159 High 160-189 Very High >189 34 REFERENCE VALUE 25-HYDROXY D TOTAL (D2+D3) Optimum levels in the healthy population are 20-50, patients with bone disease may benefit from higher levels within this range. Test Performed by: [place] [address] Multifocal Button Inspector: Sanya Forman M.D. 35 FASTING 36 HDL Interpretation: Undesirable: High Risk: Less than 40 mg/dL Desirable: Low Risk: Greater than 60 mg/dL 37 LDL Interpretation: Low Risk Optimal Level: LDL Less than 100 mg/dL Near or Above Optimal: LDL 100-129 mg/dL Borderline High Risk: LDL 130-159 mg/dL High Risk: LDL 160-189 mg/dL Very High Risk: LDL Greater than 189 mg/dL 38 [employer] DEPARTMENT OF PATHOLOGY or Extension 8627 [facility] REPORT PATIENT: MALENA CARRANZA : 1960 AGE: 52 Y SEX: F ACCT: [id number] PROCEDURE DATE: 11/04/2012 DATE RECEIVED: 11/05/2012 REQUESTING PROVIDER: MARYELLEN MALIN MD LOCATION: [facility] Case No. [id number] PATIENT DATA: [id number] SPECIMEN SUBMITTED: * * (HPVII) THIN PREP W/HPV (LSIL/ASC/JAMAL) * * ENDOCERVICAL RELEVANT HISTORY: : 1 Prev.normal: 2010 SPECIMEN ADEQUACY SATISFACTORY FOR EVALUATION, ENDOCERVICAL TRANSFORMATION ZONE COMPONENT PRESENT GENERAL CATEGORIZATION NEGATIVE FOR INTRAEPITHELIAL LESIONS OR MALIGNANCY RECOMMENDATIONS Refer to the corresponding web sites for 2012 updated general recommendation guidelines of U.S. preventive service task force for cervical cancer screening, and www.asccp.org//jmgbmsvyr2434. COMMENTS Thin Prep Pap tests are examined with an FDA approved location-guidance system. ADDITIONAL COPIES SENT TO: Screened/Rescreened Electronically Signed Sign Out Date/Time: by: by: MANA FOX, 11/05/2012 18:02 CT(ASCP) Note: The Pap smear is a screening test designed to aid in the detection of premalignant and malignant conditions of the uterine cervix. It is not a diagnostic procedure and should not be used as the sole means of detecting cervical cancer. Both false-positive and false-negative reports do occur. 00 UA Pap Smear performed at [facility] Dir: [place], [address] [place] [id number] financial engineer Dennis Joseph Dir: Justus Seo MD, [address] [facility] [phone] 02 [facility] [place] Dir: Gordy Alva MD, [address] [place] [phone] For inquiries regarding HPV test results, the physician may contact Lab [employer]: [phone] . 39 Because ethnic data is not always readily available, this report includes an eGFR for both -Americans and non- Americans. The National Kidney Disease Education Program (NKDEP) does not endorse the use of the MDRD equation for patients that are not between the ages of 18 and 70, are , have extremes of body size, muscle mass, or nutritional status, or are non- or non-. According to the National Kidney Foundation, irrespective of diagnosis, the stage of the disease is based on the level of kidney function: Stage Description GFR(mL/min/1.73 m(2)) 1 Kidney damage with normal or decreased GFR 90 2 Kidney damage with mild decrease in GFR 60-89 3 Moderate decrease in GFR 30-59 4 Severe decrease in GFR 15-29 5 Kidney failure <15 (or dialysis) 40 FASTING 41 HDL Interpretation: Undesirable: High Risk: Less than 40 mg/dL Desirable: Low Risk: Greater than 60 mg/dL 42 LDL Interpretation: Low Risk Optimal Level: LDL Less than 100 mg/dL Near or Above Optimal: LDL 100-129 mg/dL Borderline High Risk: LDL 130-159 mg/dL High Risk: LDL 160-189 mg/dL Very High Risk: LDL Greater than 189 mg/dL 43 ---- RUN DATE: 01/09/11 [facility] NMI LIVE PAGE 1 RUN TIME: 1421 Specimen Inquiry RUN USER: INTERFACE -- Name: MALENA MARTEL Accdenver#: [id number] Status: REG REF Re01/08/11 Age/Sex: 50/F Unit#: [id number] Location: [facility] : 60 -- Specimen: [id number] CARMELO Spec Date: 01/08/[address]: Florentin dooley MD Spec Type: SURGICAL P Received: 01/08/11-1150 Copies to: Maryellen shelton MD SPECIMEN BIOPSY CECAL POLYP HISTORY POST-OP DIAGNOSIS: Colonoscopy to terminal ileum, prep good - small cecal polyp removed CLINICAL INFORMATION: Screening colonoscopy for colorectal carcinoma GROSS DESCRIPTION The specimen is received in formalin labelled Malena Martel, Biopsy Cecal Polyp, and consists of two, soares, soft tissue fragments measuring 0.5 x 0.3 x 0.3 cm. Submitted entirely, one cassette. DIAGNOSIS Colon, cecum, biopsy: A. Tubular adenoma. B. No high grade dysplasia or malignancy. Signed Electronically by: CHARAN VÁZQUEZ MD 01/09/11 1420 -- -- DEPARTMENT OF PATHOLOGY, [address] [place] [address] [facility] Permit #[id number] Charan Sudilovsky,M.D. Director Luminita Marinescu,M.D. Roll Repairer Dir zohreh -- 44 [email or web address] DEPARTMENT OF PATHOLOGY or Extension 0603 [facility] REPORT PATIENT: MALENA MARTEL : 1960 AGE: 50 Y SEX: F ACCT: [id number] PROCEDURE DATE: 12/21/2010 DATE RECEIVED: 12/22/2010 REQUESTING PHYSICIAN: MARYELLEN MALIN MD LOCATION: [facility] Case No. [id number] PATIENT DATA: [id number] SPECIMEN SUBMITTED: * * (HPVII) THIN PREP W/HPV (LSIL/ASC/JAMAL) * * ENDOCERVICAL RELEVANT HISTORY: LMP: /??/2010 Prev.normal: 2009 : 1 SPECIMEN ADEQUACY SATISFACTORY FOR EVALUATION, ENDOCERVICAL TRANSFORMATION ZONE COMPONENT PRESENT GENERAL CATEGORIZATION NEGATIVE FOR INTRAEPITHELIAL LESIONS OR MALIGNANCY RECOMMENDATIONS Thin Prep Pap tests are examined with an FDA approved location-guidance system. ADDITIONAL COPIES SENT TO: Screened/Rescreened Electronically Signed Sign Out Date/Time: by: by: [facility] CJS3 MASON EMRE, 12/26/2010 13:12 CT(ASCP) The Pap smear is a screening test designed to aid in the detection of premalignant and malignant conditions of the uterine cervix. It is not a diagnostic procedure and should not be used as the sole means of detecting cervical cancer. Both false-positive and false-negative reports do occur. Performed @ [facility], [employer] [place] [address] 45 Recent studies consider the lower limit of 32.0 ng/mL to be a threshold for optimal health. Jose BW. J Nutr. 2005 May;135(2):317-22. 46 RESULT RECHECKED Procedures Date CPT Code Description Status 05/10/2017 Mammogram Completed 01/02/2016 Colonoscopy Completed 09/19/2015 Mammogram Completed 09/16/2014 Mammogram Completed 09/14/2013 Mammogram Completed 09/10/2012 Mammogram Completed 01/08/2011 Colonoscopy Completed Encounters Type Date Location Provider CPT E/M Dx Office Visit 07/02/2017 9:00a Main Office Maryellen Malin M.D. 57202 Z00.00 I10 E66.3 Office Visit 03/13/2017 1:50p Main Office Maryellen Malin M.D. 74829 E66.3 Z12.31 Office Visit 12/25/2016 3:20p Main Office Maryellen Malin M.D. 12941 F43.21 L71.8 G47.33 E66.3 Office Visit 11/15/2016 8:30a [facility] Maryellen Malin M.D. 78661 Z63.79 G47.33 F43.21 I10 E66.3 E78.2 E55.9 Office Visit 08/11/2015 9:00a [facility] Office Diana Sheppard Afcm-C 57251 Z01.419 Office Visit 07/28/2015 10:40a [facility] Office Maryellen Malin M.D. 20530 I10 E66.3 E55.9 L71.8 Z00.01 Office Visit 07/13/2015 11:00a [facility] Diana Sheppard Afnp-C 92030 F34.1 Office Visit 04/13/2015 11:00a [facility] Diana Sheppard Afnp-C 26912 F34.1 Office Visit 03/16/2015 1:30p [facility] Diana Sheppard Afnp-C 08658 F34.1 Office Visit 04/20/2014 10:40a [facility] Office Maryellen Malin M.D. 44626 V70.0 401.1 278.02 719.46 V12.72 V16.3 268.9 V76.12 Office Visit 04/16/2013 11:00a [facility] Maryellen Malin M.D. 92533 V70.0 278.02 401.1 V16.3 V12.72 Office Visit 01/23/2013 3:20p [facility] Maryellen Malin M.D. 32104 278.02 401.1 Office Visit 11/04/2012 10:50a Main Office Maryellen Malin M.D. 86728 V72.31 278.02 V12.72 V16.3 Office Visit 08/28/2012 1:30p Main Office Angelica Molina, STREET CLEANING EQUIPMENT OPERATOR 31715 401.1 727.3 380.22 Office Visit 08/23/2011 9:20a [facility] Maryellen Malin M.D. 28417 789.01 401.1 308.4 Office Visit 07/02/2011 7:40p Main Office Maryellen Malin M.D. 62146 530.81 Office Visit 06/22/2011 9:20a [facility] Maryellen Malin M.D. 14371 401.1 308.4 530.81 Office Visit 12/21/2010 1:00p [facility] Maryellen Malin M.D. 05112 V70.0 V72.31 401.1 Office Visit 11/10/2010 1:40p [facility] Maryellen Malin M.D. 86790 401.1 278.02 V70.0 268.9 995.3 Office Visit 12/07/2009 2:00p Main Office Maryellen Malin M.D. 54092 V70.0 401.1 782.3 278.02 110.4 V06.5 Office Visit 11/07/2009 7:00p Main Office Maryellen Malin M.D. 18225 401.1 477.9 Plan of Care 10/16/2017 - Miller Webb, MDR31.9 Hematuria, unspecifiedAllComments:~B_ ~U_Medication Management~b_~u_ Patient Understands medications she's taking? Yes No Are there Barriers to Adherence? Yes No Has the patient been asked about herbal supplements and therapies, and OTC meds? Yes No
[2017-11-12] MEDS ORDERED: Ondansetron ODT TAB* 4 MG ONE (13:49)
[2017-11-12] MEDS ORDERED: Famotidine IV* 10 MG/ML 2 ML (20 mg) ONE (13:49)
[2017-11-12] MEDS ORDERED: Dexamethasone TAB* 4 MG ONE (13:49)
[2017-11-12] MEDS ORDERED: Heparin VIAL(*) 5000 UNITS/ML VIAL (FIVE THOUSAND) ONE (13:49)
[2017-11-12] MEDS ORDERED: ceFAZolin 2 GM PREMIX (*) 2 GM/50 ML BAG IVPB ONE (13:50)
[2017-11-12] MEDS ORDERED: ceFAZolin 1 GM in Dextrose (*) 1 GM/50 ML BAG IVPB ONE (13:50)
[2017-11-12] MEDS ORDERED: Clindamycin 900 MG IVPREMIX(* 900 MG/50 ML SDV IV ONE (13:50)
[2017-11-12] MEDS ORDERED: Scopolamine 1.5 mg* PATCH ONE (13:50)
[2017-11-12] MEDS ORDERED: fentaNYL* 50 MCG/ML 2 ML VIAL (100 MCG VIAL) ONE ×2 (14:58→15:54)
[2017-11-12] MEDS ORDERED: Midazolam* 1 MG/ML 5 ML VIAL (5 MG) ONE (14:58)
[2017-11-12] MEDS ORDERED: KETAMINE HCL* 50 MG/ML 10 ML VIAL ONE (14:58)
[2017-11-12] MEDS ORDERED: ROPIVACAINE 5 MG/ML 30 ML BTL (0.5%) ONE (15:29)
[2017-11-12] MEDS ORDERED: Methylene Blue 0.5 %* 50 MG/10 ML AMP IV ONE (15:31)
[2017-11-12] MEDS ORDERED: Atracurium* 10 MG/ML 10 ML VIAL ONE (16:32)
[2017-11-12] MEDS ORDERED: Lidocaine 2% PF * 5 ML VIAL ONE (16:34)
[2017-11-12] MEDS ORDERED: Glycopyrrolate IV* 0.2 MG/ML 1 ML VIAL ONE (16:34)
[2017-11-12] MEDS ORDERED: Propofol* 10 MG/ML 20 ML BTL IV PUSH ONE (16:34)
[2017-11-12] MEDS ORDERED: PROCHLORPERAZINE INJ 5 MG/ML 2 ML VIAL ONE (16:34)
[2017-11-12] MEDS ORDERED: Morphine VIAL* 10 MG/ML 1 ML VIAL ONE (16:43)
[2017-11-12] MEDS ORDERED: Labetalol IV* 5 MG/ML 20 ML VIAL ONE (18:04)
--- NOTE | 2017-11-12 18:27 | OP ---
Operative Report - Blank - Operative Report Date of Operation: 11/12/17 Note: Brief Operative Note Preoperative Dx: Morbid obesity. Postoperative Dx: Morbid obesity. Procedure: Laparoscopic Royce-en-Y gastric bypass. Anesthesia: GET. Surgeon: Rick. Assist: BEREKET Rosenberg and WILMER Michele. EBL: < 50 ml. Specimen: none. Fluids: 2100 ml LR. Drains: none. Findings: Dictated.
[2017-11-12] MEDS ORDERED: Acetaminophen ADULT LIQ* 650 MG/20.3 ML UDC PO PRN (18:42)
[2017-11-12] MEDS ORDERED: Ondansetron INJ* 2 MG/ML VIAL IV PRN (18:42)
[2017-11-12] MEDS ORDERED: HYDROmorphone INJ* 0.5 MG/0.5 ML SYRINGE IV PRN ×2 (18:42)
[2017-11-12] MEDS: Famotidine IV* 10 MG/ML 2 ML (20 mg) IV SLOW PU SCH (21:36)
[2017-11-12] MEDS: Heparin VIAL(*) 5000 UNITS/ML VIAL (FIVE THOUSAND) SUBCUT SCH (21:38)
--- NOTE | 2017-11-13 02:17 | OP ---
CC: [facility]; Maryellen Quick MD* OPERATIVE REPORT: DATE OF OPERATION: 11/12/17 - Inpatient, SSU 351-01 DATE OF : 60 SURGEON: Antione Cabrera MD ASSISTANTS: BEREKET Story ANESTHESIOLOGIST: Aiden Davidson MD ANESTHESIA: General endotracheal. PRE-OP DIAGNOSIS: Morbid obesity. POST-OP DIAGNOSIS: Morbid obesity. OPERATIVE PROCEDURE: Laparoscopic Royce-en-Y gastric bypass. ESTIMATED BLOOD LOSS: Less than 20 mL. IV FLUIDS: Crystalloid. SPECIMEN: None. DRAINS: None. COMPLICATIONS: None. COUNTS: Instrument, needle, and sponge counts correct. DESCRIPTION OF PROCEDURE: The patient was brought to the operating room, placed on the table supine. Sequential compression devices were placed on both lower extremities and general anesthesia was administered. Mobley catheter was placed. She was positioned and padded appropriately. She received appropriate intravenous antibiotics. Time-out was performed. Local anesthetic was infiltrated to the skin and soft tissue prior to each incision being made. Entry to the abdomen was through a left upper quadrant incision accommodating a 12 mm optical trocar. After accessing peritoneal cavity, carbon dioxide was insufflated to a pressure of 15 mmHg. Under direct visualization, 5 mm trocars were placed in the left upper quadrant medially and left upper quadrant laterally. A 12 mm trocars were placed in the supraumbilical midline and right upper quadrant laterally. A Michael liver retractor was placed percutaneously in the subxiphoid position and used to elevate the left lobe of the liver. The gastric anatomy appeared normal. Mobilization of the cardia of the stomach was performed using blunt dissection and LigaSure, freeing the attachments to the left kendy of the diaphragm. Next, perigastric dissection was undertaken on the lesser curvature at approximately the second crossing vein entering into the lesser sac and then transverse firing of the Endo-USAMA stapler with a soares cartridges was performed. Subsequently, dissection was performed to the angle of Hiss and with additional firings of the Endo-USAMA stapler with soares cartridges, a gastric pouch was created approximating 15 to 30 mL volume. Gastric staple lines were noted to be intact and hemostatic. Next, the omentum was retracted superiorly. It was divided down the midline with the LigaSure. The transverse colon was retracted cephalad and the ligament of Treitz was identified. The jejunum was measured out 40 cm to 50 cm and the loop was then sutured to the lateral left side of the gastric pouch with interrupted 2-0 silks. Next, a gastrojejunal anastomosis was created with the Endo-USAMA stapler with a 30-mm soares cartridge. The common enterotomy was closed with 3-0 PDS over a 34-Cuban gastric lavage tube. The loop of jejunum was then divided to the left side to complete the anastomosis. The anastomosis was then tested with methylene blue dye solution instilled through the orogastric tube with distal occlusion on the Royce limb. No leak was identified. The Royce limb was measured out for a 75 cm length. The jejunojejunostomy was then created with the Endo-USAMA stapler size 60 mm and common enterotomy was run closed with 3-0 PDS running it to and fro tying it to itself. Lastly, mesenteric defect was closed with interrupted 2-0 and 3-0 silk using figure-of- eight sutures. The Michael liver retractor and all ports were removed and carbon dioxide was released and then skin incisions were closed with 4-0 Monocryl in subcuticular fashion. Steri-strips were applied. The patient tolerated the procedure well. She was extubated and transferred to recovery room in stable condition. [id number]/[facility] #: [id number] FELIX
[2017-11-13] MEDS: Heparin VIAL(*) 5000 UNITS/ML VIAL (FIVE THOUSAND) SUBCUT SCH ×3 (06:38→21:48)
[2017-11-13] MEDS: Famotidine IV* 10 MG/ML 2 ML (20 mg) IV SLOW PU SCH ×2 (08:50→21:48)
[2017-11-13] MEDS: Ketorolac INJ* 30 MG/ML 1 ML VIAL IV PRN ×2 (08:50→21:48)
--- NOTE | 2017-11-13 09:12 | PN ---
Progress Note - Progress Note Date of Service: 11/13/17 SOAP: Subjective: Post op day 1 s/p laparoscopic Royce-en-Y gastric bypass. Pt reports a good night of rest without pain. She denies nausea, SOB, flatus or BM. Objective: Temp Pulse Resp BP Pulse Ox 97.4 F 71 18 106/57 98 11/13/17 07:32 11/13/17 07:32 11/13/17 07:32 11/13/17 07:32 11/13/17 07:32 Gen: NAD Resp: anterior lung epstein clear to auscultation b/l Heart: RRR without M/R/G Abd: soft, nondistended. Hypoactive bowel sounds. Dressings in place. Wounds are clean, dry, and intact. Ext: SCDs on, nontender Intake & Output 11/11/17 11/12/17 11/13/17 11/14/17 06:59 06:59 06:59 06:59 Intake Total 3184 975 Output Total 825 150 Balance 2359 825 Weight 211 lb 3.2 oz Intake: IV Fluids 3184 975 LR 3184 975 Oral 0 Output: Mobley 725 150 Estimated Blood Loss 100 Other: # Bowel Movements 0 Assessment: [POD 1 s/p Lap Royce-en-Y gastric bypass. Pt is stable] Plan: [Shaneka Anderson PROFESSOR OF HISTORY to place order to D/C Mobley and start clears. Encourage ambulation and inspiron.]
[2017-11-13] MEDS: HYDROcodone/ACET. 7.5/325 LIQ* 15 ML UDC PO PRN (13:07)
[2017-11-13] MEDS: D5W 1/2 NS KCl 20 Meq 1000 ML* 1,000 ML IV SCH (18:20)
[2017-11-14] MEDS: D5W 1/2 NS KCl 20 Meq 1000 ML* 1,000 ML IV SCH (02:20)
[2017-11-14] MEDS: Heparin VIAL(*) 5000 UNITS/ML VIAL (FIVE THOUSAND) SUBCUT SCH (05:25)
[2017-11-14 07:17] VITALS: BP 116/70
[2017-11-14] MEDS: Famotidine IV* 10 MG/ML 2 ML (20 mg) IV SLOW PU SCH (09:51)
[2017-11-14] MEDS: HYDROcodone/ACET. 7.5/325 LIQ* 15 ML UDC PO PRN (09:52)
--- NOTE | 2017-11-14 10:49 | PN ---
Progress Note - Progress Note Date of Service: 11/14/17 SOAP: Subjective: Tolerating po well. Passing flatus. No N/V. Pain controlled. Objective: Vital Signs Temp 97.6 F 11/14/17 07:17 Pulse 54 11/14/17 07:17 Resp 16 11/14/17 09:52 BP 116/70 11/14/17 07:17 Pulse Ox 97 11/14/17 07:17 Gen: NAD Abd: incisions c/d/i no erythema. soft. min tender. Intake & Output 11/13/17 11/14/17 11/14/17 18:59 06:59 18:59 Intake Total 2678 1386 0 Output Total 400 650 400 Balance 2278 736 -400 Intake: IV Fluids 2348 996 D5W 1/2 NS 20 meq KCL 996 LR 2348 Oral 330 390 0 Output: Urine 250 650 400 Mobley 150 Assessment: []POD#2 s/p LRYGB. Doing well. Plan: stable for discharge home. follow diet guidelines. Nortab prn. RTC 1 week.
--- NOTE | 2017-11-14 23:19 | DS ---
Amended report to enter cosigning physician. CC: Dr. Antione Cabrera; Dr. Maryellen Quick* DISCHARGE SUMMARY: DATE OF ADMISSION: 11/12/17 DATE OF DISCHARGE: 11/14/17 ATTENDING SURGEON: Dr. Antione Cabrera* (dictated by Gabi Anderson NP). HOSPITAL COURSE: Please refer to admission history and physical for admission details. The patient was taken to the operating room on 11/12/17, and underwent laparoscopic Royce-en-Y gastric bypass. She has had an uneventful postoperative course and as of the morning of discharge, was tolerating 120 mL of clear liquids per hour, her pain was well controlled, she denied any nausea, she was ambulating in the halls and using the incentive spirometer. PHYSICAL EXAMINATION: Vital Signs: Temperature maximum 97.6, all other vital signs were stable, O2 saturation on room air was 97%. General: Well nourished and in no acute distress. Lungs: Breath sounds bilaterally clear and equal. Heart: Regular rate and rhythm. Abdomen: Laparoscopic incision sites intact with Steri- Strips. No erythema or drainage or active bleeding; bowel sounds are present. Abdomen is soft. IMPRESSION: Stable, status post laparoscopic Royce-en-Y gastric bypass. PLAN: Discharge home today; she will resume her usual antidepressant, she will follow the prescribed bariatric dietary guidelines and has a followup appointment at [facility] within approximately 1 week. She has an analgesic prescription at home. She knows to call with any concerns. SONYA ANDERSON NP [id number]/[facility] #: [id number] FELIX
[2017-11-15] MEDS ORDERED: Scopolamine PATCH Remove* 1 NOTE MISC PATCH OFF ONE (06:00)
== END 2017-11-14 11:35 | disposition home or self-care (01) | DRG 403 ==
LOC: AA 13:10 → SSU 19:54
PROVIDERS: ADMIT Surgery; ATTEND Surgery
PROC: 0D164ZA Bypass Stomach to Jejunum, Percutaneous Endoscopic Approach (ICD-10-PCS; principal; 2017-11-12 13:15)
DX: E66.01 Morbid (severe) obesity due to excess calories (principal); G47.33 Obstructive sleep apnea (adult) (pediatric); I10 Essential (primary) hypertension; F32.9 Major depressive disorder, single episode, unspecified; Z90.49 Acquired absence of other specified parts of digestive tract; Z83.3 Family history of diabetes mellitus; Z82.61 Family history of arthritis; Z82.5 Family history of asthma and other chronic lower respiratory diseases; Z78.0 Asymptomatic menopausal state; Z80.3 Family history of malignant neoplasm of breast; Z68.37 Body mass index [BMI] 37.0-37.9, adult
CPT/HCPCS: 43644; A9270-GY; C1776; J0690; J0780; J1644; J1885; J2250; J2270; J2704; J2795; J3010; J8540

== ENCOUNTER 2019-02-09 10:28 | Emergency (ER) | payer BC ==
--- OUTSIDE RECORDS SUMMARY | 2019-02-09 10:33 | XMS REPORT | Continuity of Care Document ---
:1960 External Reference #:[id number] Author Name Roxana Hunter DNP, RN, OUTSIDE INSTALLER APPRENTICE-BC (transmitted by agent of provider Gris Bliss) Address [address] [facility], [address] [place] [id number] Care Team Providers Name Role Phone Maryellen Quick MD - Internal Care Team Information [employer] Psychologist Medicine Problems Active Problems Provider Date Difficulty breathing Kelle Vigil MD Onset: 12/05/2016 Obstructive sleep apnea syndrome Roxana Hunter DNP, RN, OUTSIDE INSTALLER APPRENTICE-BC Onset: Note: Severe. HST 12/21/16 AHI 32.4/hour (44.5/hour supine (back), maykel oxygen 78% wt 226 Body mass index 40+ - severely Roxana Hunter DNP, RN, OUTSIDE INSTALLER APPRENTICE-BC Onset: 2017 obese Social History Type Date Description Comments Sex Unknown Tobacco Use Start: Unknown Never Smoked Cigarettes Smoking Status Reviewed: 12/31/18 Never Smoked Cigarettes ETOH Use Rarely consumes alcohol Tobacco Use Start: Unknown Patient has never smoked Recreational Drug Use Denies Drug Use Exercise Type/Frequency Exercises regularly Exercise Type/Frequency Walks 3 times a week Exercise Type/Frequency Lifts weights 3 times a week Allergies, Adverse Reactions, Alerts Description No Known Drug Allergies Medications Active Medications SIG Qnty Indications Ordering Provider Date Escitalopram Oxalate 2 tablet daily 30tabs Kelle Vigil, 12/05/2016 10mg qpm MD Tablets Metronidazole as needed for Unknown 0.75% Cream facial rash Calcium Chewtab. 1 by Unknown mouth one time per day Multi Vitamin Bariatric. 2 by Unknown mouth one time per day Antacid Prescription. 1 Unknown by mouth one time per day Immunizations Description No Information Available Vital Signs Date Vital Result Comment 12/31/2018 10:54am Height 63 inches 5'3" Weight 163.12 lb Heart Rate 64 /min BP Systolic Sitting 112 mmHg Lue reg cuff BP Diastolic Sitting 78 mmHg Lue reg cuff Respiratory Rate 14 /min O2 % BldC Oximetry 97 % On Ra BMI (Body Mass Index) 28.9 kg/m2 05/16/2018 8:54am Height 63 inches 5'3" Weight 174.38 lb Heart Rate 70 /min BP Systolic Sitting 122 mmHg Rue reg cuff BP Diastolic Sitting 90 mmHg Rue reg cuff Respiratory Rate 16 /min O2 % BldC Oximetry 96 % On Ra BMI (Body Mass Index) 30.9 kg/m2 Results Test Date Facility Test Result H/L Range Note Quantiferon 12/17/2018 [facility] QuantiferonTb Gold Negative Negative 1 -TB Gold [address] [address] [phone] TB1 Ag minus Nil Result -0.03 IU/mL TB2 Ag minus Nil Result -0.04 IU/mL Mitogen minus Nil Result 9.63 IU/mL Nil Result 0.10 IU/mL CBC Auto 08/12/2018 [facility] White Blood 4.6 10^3/uL Normal 3.5-10.[address] [place] [address] [phone] Red Blood Count 4.58 10^6/uL Normal 3.70-4.87 Hemoglobin 13.3 g/dL Normal 12.0-16.0 Hematocrit 41 % Normal 35-47 Mean Corpuscular Volume 89 fL Normal 80-97 Mean Corpuscular Hemoglobin 29 pg Normal 27-31 Mean Corpuscular HGB Conc 33 g/dL Normal 31-36 Red Cell Distribution Width 14 % Normal 10.5-15 Platelet Count 218 10^3/uL Normal 150-450 Mean Platelet Volume 8.1 fL Normal 7.4-10.4 Abs Neutrophils 2.4 10^3/uL Normal 1.5-7.7 Abs Lymphocytes 1.7 10^3/uL Normal 1.0-4.8 Abs Monocytes 0.3 10^3/uL Normal 0-0.8 Abs Eosinophils 0.1 10^3/uL Normal 0-0.6 Abs Basophils 0.0 10^3/uL Normal 0-0.2 Abs Nucleated RBC 0.0 10^3/uL Granulocyte % 52.7 % Lymphocyte % 36.9 % Monocyte % 6.9 % Eosinophil % 2.9 % Basophil % 0.6 % Nucleated Red Blood Cells % 0.1 Comp Metabolic 08/12/2018 [facility] Sodium 142 mmol/L Normal 135-145 Panel [address] [place] [address] [phone] Potassium 4.3 mmol/L Normal 3.5-5.0 Chloride 106 mmol/L Normal 101-111 Co2 Carbon Dioxide 32 mmol/L Normal 22-32 Anion Gap 4 mmol/L Normal 2-11 Glucose 86 mg/dL Normal 70-100 Blood Urea Nitrogen 12 mg/dL Normal 6-24 Creatinine 0.85 mg/dL Normal 0.51-0.95 BUN/Creatinine Ratio 14.1 Normal 8-20 Calcium 9.7 mg/dL Normal 8.6-10.3 Total Protein 6.6 g/dL Normal 6.4-8.9 Albumin 4.2 g/dL Normal 3.2-5.2 Globulin 2.4 g/dL Normal 2-4 Albumin/Globulin Ratio 1.8 Normal 1-3 Total Bilirubin 0.40 mg/dL Normal 0.2-1.0 Alkaline Phosphatase 75 U/L Normal 34-104 Alt 34 U/L Normal 7-52 Ast 28 U/L Normal 13-39 Egfr Non- 68.9 >60 Egfr 83.4 >60 2 Iron & Iron Binding 08/12/2018 [facility] Iron 109 g/dL Normal 50-212 Capacity [address] [place] [address] [phone] Unsaturated Iron Binding < 364 g/dL Total Iron Binding Capacity 379 g/dL Normal 250-450 Transferrin 271 mg/dL Normal 203-362 % Iron Saturation 29 % Normal 15-55 Laboratory test 08/12/2018 [facility] Ferritin 87.8 ng/mL Normal 11-307 finding [address] [place] [address] [phone] Folic Acid (Folate) 17.51 ng/mL >3.99 Vitamin B12 499 pg/mL Normal 180-914 3 Vitamin D Total 25(Oh) 45.8 ng/mL Normal 20-50 4 Vitamin B1 (Whole Blood) 121 nmol/L 70-180 5 Vitamin E Level 11.0 mg/L 5.5 - 17.0 6 1 M. tuberculosis infection NOT likely 2 Because ethnic data is not always readily [...] 15-29 5 Kidney failure <15 (or dialysis) 3 Normal Range 180 to 914 Indeterminate Range 145 to 180 Deficient Range <145 4 Total 25-Hydroxyvitamin D2 and D3 (25-OH-VitD) <10 ng/mL (severe deficiency) 10-19 ng/mL (mild to moderate deficiency) 20-50 ng/mL (optimum levels) 51-80 ng/mL (increased risk of hypercalciuria) >80 ng/mL (toxicity possible) 5 ADDITIONAL INFORMATION This test was developed and its performance characteristics determined by [facility] in a manner consistent with CLIA requirements. This test has not been cleared or approved by the U.S. Food and Drug Administration. Test Performed by: [facility] - [address] [id number] 6 ADDITIONAL INFORMATION This test was developed and its performance characteristics determined by [facility] in a manner consistent with CLIA requirements. This test has not been cleared or approved by the U.S. Food and Drug Administration. Test Performed by: [facility] - [address] [address] Procedures Description No Information Available Medical Devices Description No Information Available Encounters Description No Information Available Assessments Date Code Description Provider 12/31/2018 G47.33 Obstructive sleep apnea (adult) Roxana Hunter DNP, RN, OUTSIDE INSTALLER APPRENTICE-BC (pediatric) Plan of Treatment Future Appointment(s):07/03/2019 8:15 am - Roxana Hunter DNP, RN, OUTSIDE INSTALLER APPRENTICE-BC at [facility]12/31/2018 - Roxana Hunter DNP, RN, OUTSIDE INSTALLER APPRENTICE- BCG47.33 Obstructive sleep apnea (adult) (pediatric)Comments:Sleep Apnea - HST 12/21/16 AHI 32.4/hour (44.5/hour supine (back), maykel oxygen 78% wt 226 On CPAP 5-14 cm AHI 13.7/hourFollow up:6 monthsRecommendations:Continue PAP device , Benefitting and compliant with treatment. Due to elevated AHI recommend adjustment of CPAP auto to 6-12 cm, order to be sent to [facility]. Cleaning Wipe off mask daily (baby wipe-no scent, or warm water) Clean mask, tubing, filter, and water chamber weekly in mild no scent dish soap and water. Hang to dry. If you have any sleepiness while driving you MUST avoid operating a vehicle or machinery. If you have difficulty with your equipment, or need to replace yourmask or hoses, please contact your homecare agency. A weight change of 20 pounds or more may have aneffect on your equipment; if you are experiencing problems please call for an appointment. Continue with weight loss efforts If you have any further questions, please call the [facility] at [phone]. Functional Status Description No Information Available Mental Status Description No Information Available Referrals Description No Information Available
[2019-02-09 10:36] VITALS: BP 131/78
--- NOTE | 2019-02-09 10:38 | UC ---
Back Pain HPI - HPI Summary HPI Summary: Patient is a 58yo female presenting with lower back pain and spasms x8 days that she states began when she was using a ladder and has gradually worsened. Patient states she has had similar issues in the past and there is "something about movement on a ladder that aggravates it but it usually resolves on its own." Patient notes pain now radiates from L buttock all across lower back. Notes sharp pain that is worse with prolonged periods of rest/sitting. Denies numbness and tingling. Denies pain down leg or up spine. Denies trauma or injury. Denies changes in BM or urination. Denies decreased ROM and strength. Has tried ice, heat, massage, otc analgesics without much relief. - History of Current Complaint Chief Complaint: UCBackPain Stated Complaint: back INJURY Hx Obtained From: Patient Hx Last Menstrual Period: 10 years ago. Onset/Duration: Gradual Onset, Lasting Days Severity Currently: Moderate Pain Intensity: 6 Pain Scale Used: 0-10 Numeric - Allergies/Home Medications Allergies/Adverse Reactions: Allergies Allergy/AdvReac Type Severity Reaction Status Date / Time No Known Allergies Allergy Verified 02/09/19 10:36 Home Medications: Home Medications Multivit-Min/Iron/Folic Acid/K [Bariatric Mv-Iron 45 mg Cap] 2 each PO DAILY 02/17 [History Confirmed 02/09/19] PMH/Surg Hx/FS Hx/Imm Hx GI/ History: Gastroesophageal Reflux - Surgical History Surgical History: Yes Surgery Procedure, Year, and Place: [facility]2010, bariatric surgery - Family History Known Family History: Positive: Respiratory Disease - Mother/brother - COPD Sister: Lung Polyps, Non-Contributory - Social History Occupation: Employed Full-time Alcohol Use: None Alcohol Amount: 1 per month Substance Use Type: None Smoking Status (MU): Never Smoked Tobacco Have You Smoked in the Last Year: No Household Exposure Type: Cigarettes - Immunization History Most Recent Influenza Vaccination: dec 2015 Most Recent Pneumonia Vaccination: never Review of Systems All Other Systems Reviewed And Are Negative: Yes Constitutional: Positive: Negative Skin: Positive: Negative Respiratory: Positive: Negative Cardiovascular: Positive: Negative Musculoskeletal: Positive: Myalgia - low back spasms. Negative: Decreased ROM, Edema Neurological: Negative: Weakness, Paresthesia, Numbness Physical Exam Triage Information Reviewed: Yes Appearance: Well-Appearing, No Pain Distress, Well-Nourished Vital Signs: Initial Vital Signs Temp 97.0 F 02/09/19 10:32 Pulse 77 02/09/19 10:32 Resp 18 02/09/19 10:32 BP 131/78 02/09/19 10:32 Pulse Ox 100 02/09/19 10:32 Vital Signs Reviewed: Yes Eyes: Positive: Conjunctiva Clear ENT: Positive: Hearing grossly normal Neck: Positive: Supple Respiratory Exam: Normal Respiratory: Positive: Lungs clear, Normal breath sounds, No respiratory distress Cardiovascular Exam: Normal Cardiovascular: Positive: RRR Musculoskeletal Exam: Normal Musculoskeletal: Positive: Strength Intact, ROM Intact, No Edema, Other: - minimal tenderness to palpation of L lower back. no midline tenderness. normal gait Neurological Exam: Other - sensation grossly intact Neurological: Positive: Alert Psychological: Positive: Age Appropriate Behavior Skin Exam: Normal - no erythema or ecchymosis Back Pain Course/Dx - Course Course Of Treatment: I treated with flexeril and prednisone, as patient states this has worked for this pain for her in the past. Educated patient on flexeril and possible drowsiness side effect. Instructed patient to follow up with PCP if symptoms persist. Patient voiced understanding and agreed with treatment plan. - Differential Dx/Diagnosis Provider Diagnosis: Spasm of muscle of lower back Discharge ED - Sign-Out/Discharge Documenting (check all that apply): Patient Departure All imaging exams completed and their final reports reviewed: No Studies - Discharge Plan Condition: Stable Disposition: HOME Prescriptions: Cyclobenzaprine TAB* [Flexeril 10 MG TAB*] 10 mg PO BID PRN #14 tab PRN Reason: Spasms predniSONE TAB* [Deltasone 20 MG TAB*] 20 mg PO DAILY #4 tab Patient Education Materials: Muscle Spasm (ED) Referrals: Maryellen Quick MD [Primary Care Provider] - If Needed Additional Instructions: As discussed, take the flexeril and prednisone as prescribed to help alleviate back pain and spasms. It is important you know that flexeril may make you drowsy. You may continue to heat and massage. You may also take over the counter pain medications as directed for pain relief. Follow up with your PCP if your symptoms do not resolve within 10 days. Go to the emergency room if your pain worsens. - Billing Disposition and Condition Condition: STABLE Disposition: Home
== END 2019-02-09 11:05 | disposition home or self-care (01) ==
LOC: UCEAST 10:28
DX: M62.830 Muscle spasm of back (principal)
CPT/HCPCS: 99212; G0463

== ENCOUNTER 2020-03-13 18:05 | Observation (INO) ==
[2020-03-13] MEDS ORDERED: NS 0.9% 1000 ml BAG 1,000 ML IV ONE (19:57)
[2020-03-13 20:38] LABS: ABS Eosinophils 0.1 10^3/ul (0-0.6); ABS Lymphocytes 1.8 10^3/ul (1.0-4.8); ABS Monocytes 0.4 10^3/ul (0-0.8); ABS Neutrophils 4.4 10^3/ul (1.5-7.7); Eosinophil % 1.2 %; Hematocrit 43 % (35-47); Hemoglobin 14.3 g/dL (12.0-16.0); Lymphocyte % 26.7 %; Mean Corpuscular HGB Conc 34 g/dL (31-36); Mean Corpuscular Hemoglobin 30 pg (27-31); Mean Corpuscular Volume 89 fL (80-97); Nucleated Red Blood Cells % 0.1; Platelet Count 228 10^3/uL (150-450); Red Cell Distribution Width 13 % (10-15); White Blood Count 6.6 10^3/uL (3.5-10.8)
[2020-03-13 20:54] LABS: Albumin 4.5 g/dL (3.2-5.2); Albumin/Globulin Ratio 1.4 (1-3); BUN/Creatinine Ratio 15.7 (8-20); C Reactive Protein 1.45 mg/L (<8.01); Calcium 9.8 mg/dL (8.6-10.3); EGFR African American 85.1 (>60); EGFR Non-African American 70.4 (>60); Globulin 3.2 g/dL (2-4); Total Bilirubin 0.4 mg/dL (0.2-1.0); Total Protein 7.7 g/dL (6.4-8.9)
[2020-03-13] MEDS ORDERED: Iohexol 300 (CONTRAST) 10 ML SDV IV ONE (21:11)
[2020-03-13 22:14] LABS: Urine Appearance Clear; Urine Bilirubin Negative (Negative); Urine Blood Negative (Negative); Urine Color Straw; Urine Glucose Negative (Negative); Urine Ketones Trace (Negative); Urine Nitrite Negative (Negative); Urine Protein Negative (Negative); Urine Specific Gravity 1.005 (1.010-1.030); Urine Urobilinogen Negative (Negative)
[2020-03-13] MEDS ORDERED: Al Hydrox/Mg Hydrox/Simet LIQ 30 ML UDC PO PRN (23:57)
[2020-03-14] MEDS: NS 0.9% 1000 ml BAG 1,000 ML IV SCH ×2 (02:28→13:42)
[2020-03-14 06:17] LABS: ABS Basophils 0.1 10^3/ul (0-0.2); ABS Eosinophils 0.2 10^3/ul (0-0.6); ABS Lymphocytes 2.3 10^3/ul (1.0-4.8); ABS Monocytes 0.4 10^3/ul (0-0.8); ABS Neutrophils 2.8 10^3/ul (1.5-7.7); Eosinophil % 3.1 %; Hematocrit 38 % (35-47); Hemoglobin 12.6 g/dL (12.0-16.0); Lymphocyte % 40.2 %; Mean Corpuscular HGB Conc 33 g/dL (31-36); Mean Corpuscular Hemoglobin 29 pg (27-31); Mean Corpuscular Volume 89 fL (80-97); Nucleated Red Blood Cells % 0.1; Platelet Count 217 10^3/uL (150-450); Red Blood Count 4.28 10^6 /uL (3.70-4.87); Red Cell Distribution Width 13 % (10-15); White Blood Count 5.8 10^3/uL (3.5-10.8)
[2020-03-14 06:41] LABS: BUN/Creatinine Ratio 12.5 (8-20); Calcium 9.2 mg/dL (8.6-10.3); EGFR African American 88.8 (>60); EGFR Non-African American 73.4 (>60); Potassium 4.5 mmol/L (3.5-5.0)
[2020-03-14 07:45] LABS: HDL Cholesterol 62.5 mg/dL
[2020-03-14] MEDS ORDERED: FOLIC ACID PO SCH (09:00)
[2020-03-14] MEDS ORDERED: [UNRECOGNIZED DRUG - OTHER] PO SCH (09:00)
[2020-03-14] MEDS ORDERED: IRON PO SCH (09:00)
[2020-03-14] MEDS ORDERED: MULTIVIT MIN PO SCH (09:00)
[2020-03-14 15:29] VITALS: BP 119/71
== END 2020-03-14 17:45 | disposition home or self-care (01) ==
LOC: SSU 18:05 → ED 18:05 → SSU 03-14 02:13
PROVIDERS: ADMIT Pediatrics; ATTEND Internal Medicine